=== PATIENT | female | born 1945 | race Caucasian/White ===

== ENCOUNTER 2021-12-13 12:37 | Emergency (ER) | payer MEDICARE, MEDICAID, SELFPAY ==
[2021-12-13 12:38] VITALS: BP 131/59; PULSE 75; RESP 15; TEMP 37.9; O2SAT 95
--- NOTE | 2021-12-13 12:52 | ECG_ITS ---
Measurements Intervals [place] Rate: 73 P: 40 OH: 196 QRS: 22 QRSD: 90 T: 29 QT: 393 QTc: 433 Interpretive Statements SINUS RHYTHM NORMAL ECG NO PREVIOUS ECG AVAILABLE FOR COMPARISON Electronically Signed On 12-13-2021 16:31:58 CDT by Dick Gomez M.D.
--- NOTE | 2021-12-13 12:52 | ED.SYNCOPE ---
HPI - Syncope General Chief Complaint: Syncope Stated Complaint: Syncope Time Seen by Provider: 12/13/21 12:46 History of Present Illness HPI narrative: Pt was walking outside with on regular walk and felt light headed and had brief syncopal episode. Pt did not notice CP or palpitations prior to or after event. was next to her and lowered her to ground. Pt says she feels fine now. Had an episode 20 years ago similar but none since. Heat index well over 100 today. Related Data Home Medications Medication Instructions Recorded Confirmed atenolol 25 mg tablet tablet 12/13/21 atorvastatin 10 mg tablet tablet 12/13/21 bacillus coagulans-inulin 1 cap PO 12/13/21 billion cell-250 mg capsule (Probiotic with Prebiotic) levothyroxine 100 mcg tablet tablet 12/13/21 lisinopril 10 mg tablet tablet 12/13/21 sodium bicarbonate 650 mg tablet tablet 12/13/21 12/13/21 Allergies Allergy/AdvReac Type Severity Reaction Status Date / Time codeine Allergy Abdominal Verified 12/13/21 12:53 Pain ibuprofen [From Motrin] Allergy Numbness Verified 12/13/21 12:53 Review of Systems Review of Systems: All systems reviewed & are unremarkable except as noted in HPI and below Exam Const: General: healthy appearing Nutritional Appearance: well nourished Orientation/consciousness: patient oriented x3 Limitations: no limitations HENMT: Head: normal to inspection Mouth: Yes Normal oral and palatal mucosa present Eyes: Conjunctivae: conjunctivae normal EOM: EOMs intact bilaterally Neck: Neck: normal visual inspection, no lymphadenopathy and no meningeal signs Chest: Chest palpation & inspection: normal inspection of the chest Resp: Effort & Inspection: normal respiratory effort Auscultation: clear to auscultation bilaterally Cardio: Rate: regular rate Rhythm: regular rhythm Heart sounds: Murmur heart sound present GI: Auscultation: normal bowel sounds Skin: General skin exam: normal color Rashes: no rashes Wounds: no wounds Neuro: General: patient oriented x3, moves all extremities, no meningeal signs, no focal motor deficits and CN's II-XI intact bilaterally Cranial nerves: Yes Nystagmus not present Speech: normal speech Extrem: General: normal to inspection and no clubbing, cyanosis or edema Psych: Mental Status: mental status grossly normal Affect: normal affect Attitude: cooperative Course Vital Signs Vital signs: Vital Signs Temperature 100.3 F H 12/13/21 12:38 Pulse Rate 75 12/13/21 12:38 Respiratory Rate 15 12/13/21 12:38 Blood Pressure 131/59 L 12/13/21 12:38 Pulse Oximetry 95 12/13/21 12:38 Oxygen Delivery Room Air 12/13/21 12:38 Temperature 97.9 F 12/13/21 13:55 Pulse Rate 68 12/13/21 14:43 Respiratory Rate 14 12/13/21 14:43 Blood Pressure 118/64 12/13/21 14:43 Pulse Oximetry 98 12/13/21 14:43 Oxygen Delivery Room Air 12/13/21 13:07 MDM - Syncope Lab Data Result diagrams: 12/13/21 13:06 12/13/21 13:06 Labs: Lab Results 12/13/21 12/13/21 Range/Units 13:06 13:06 WBC 8.0 (4.5-10.0) K/mm3 RBC 4.01 L (4.2-5.4) M/mm3 Hgb 11.1 L (12.0-15.0) g/dL Hct 34.7 L (37.0-47.0) % MCV 86.5 (80-100) fl MCH 27.7 (26-34) pg MCHC 32.0 (32-36) g/dl RDW 14.3 (11.5-14.5) % Plt Count 171 (150-375) k/mm3 MPV 10.1 (7.4-10.4) fl Immature Gran % (Auto) 0.4 (0-0.5) % Neut % (Auto) 63.7 (45.5-73.1) % Lymph % (Auto) 19.4 (18.3-44.2) % [place] % (Auto) 11.5 H (2.6-8.5) % Eos % (Auto) 4.1 (0-4.4) % Baso % (Auto) 0.9 (0.2-1.2) % Lymph # (Auto) 1.55 (0.9-3.2) K/mm3 [place] # (Auto) 0.9 H (0.1-0.6) K/mm3 Eos # (Auto) 0.3 (0-0.3) K/mm3 Baso # (Auto) 0.1 (0.0-0.1) K/mm3 Abs Immat Gran (auto) 0.03 (0.00-0.031) K/mm3 Absolute Neuts (auto) 5.1 (1.3-6.7) K/mm3 Absolute Nucleated RBC 0.0 (0.0-0.012) K/mm3 Nucleated RBC % 0.0 (0.0-0.2) %
[2021-12-13] MEDS: SODIUM CHLORIDE 0.9% IV 1,000 ML 999 ML IV CONT (12:59)
[2021-12-13 13:00] VITALS: BP 125/59; BP 140/65; PULSE 80; PULSE 88
[2021-12-13 13:02] VITALS: BP 128/68; PULSE 83
[2021-12-13 13:07] VITALS: O2SAT 96
[2021-12-13 13:11] LABS: Basophils Absolute Auto 0.1 K/mm3 (0.0-0.1); Basophils Percent Auto 0.9 % (0.2-1.2); Eosinophils Absolute Auto 0.3 K/mm3 (0-0.3); Eosinophils Percent Auto 4.1 % (0-4.4); Hematocrit 34.7 % (37.0-47.0); Hemoglobin 11.1 g/dL (12.0-15.0); Immature Granulocyte Absolute 0.03 K/mm3 (0.00-0.031); Immature Granulocyte Percent A 0.4 % (0-0.5); Lymphocytes Absolute Auto 1.55 K/mm3 (0.9-3.2); Lymphocytes Percent Auto 19.4 % (18.3-44.2); Mean Corpuscular Hemoglobin 27.7 pg (26-34); Mean Corpuscular Volume 86.5 fl (80-100); Mean Platelet Volume 10.1 fl (7.4-10.4); Monocytes Absolute Auto 0.9 K/mm3 (0.1-0.6); Monocytes Percent Auto 11.5 % (2.6-8.5); Neutrophils Absolute Auto 5.1 K/mm3 (1.3-6.7); Neutrophils Percent Auto 63.7 % (45.5-73.1); Platelet Count Result 171 k/mm3 (150-375); Red Blood Count 4.01 M/mm3 (4.2-5.4); Red Cell Distribution Width 14.3 % (11.5-14.5)
[2021-12-13 13:21] LABS: Alanine Aminotransferase 32 U/L (6-35); Alkaline Phosphatase 83 U/L (38-126); Anion Gap 7 mmol/L (8-16); Aspartate Amino Transferase 36 U/L (14-36); Bilirubin,Total 0.3 mg/dL (0.2-1.3); Blood Urea Nitrogen 32 mg/dL (7-17); Calcium 8.8 mg/dL (8.4-10.2); Carbon Dioxide 22 mmol/L (22-30); Chloride 109 mmol/L (98-107); Estimated CRCL calculation 13 ml/min; Estimated Glomerular Filt Rate 17; Glucose 116 mg/dL (65-110); Magnesium 1.6 mg/dL (1.6-2.3); Potassium 4.6 mmol/L (3.4-5.0); Sodium 138 mmol/L (137-145)
[2021-12-13 13:33] LABS: Troponin I < 0.012 ng/mL (0.000-0.034)
[2021-12-13 13:55] VITALS: BP 127/58; PULSE 70; RESP 14; TEMP 36.6; O2SAT 97
[2021-12-13 14:43] VITALS: BP 118/64; PULSE 68; RESP 14; O2SAT 98
== END 2021-12-13 14:45 | disposition home or self-care (01) ==
PROVIDERS: Emergency Provider Emergency Medicine; PCP Family Medicine
DX: R55 Syncope and collapse (principal)
CPT/HCPCS: 36415; 80053; 83735; 84484; 85025; 93005; 96360; 99284; J7030

== ENCOUNTER 2022-07-15 10:07 | Outpatient (CLI) | payer MEDICARE, MEDICAID, SELFPAY ==
[2022-07-15 21:41] LABS: Free T4 Free Thyroxine Reflex 0.94 ng/dL (0.78-2.19)
[2022-07-15 22:26] LABS: Total Triiodothyronine (T3) 0.77 NG/ML (0.97-1.69)
== END 2022-07-15 10:08 | disposition home or self-care (01) ==
PROVIDERS: PCP Family Medicine; Visit Provider Nurse Practitioner Family
DX: E03.9 Hypothyroidism, unspecified (principal)
CPT/HCPCS: 36415; 84439; 84443; 84480

== ENCOUNTER 2022-07-23 12:53 | Emergency (ER) | payer MEDICARE, MEDICAID, SELFPAY ==
[2022-07-23] VITALS (7 sets, daily range): BP systolic 119–145; BP diastolic 59–90; PULSE 77–89; RESP 15–24; TEMP 36.6–36.9; O2SAT 95–100
[2022-07-23 15:36] LABS: Influenza A QL RT-PCR Negative (Negative); Influenza B QL RT-PCR Negative (Negative); SARS-CoV-2 RNA PCR Negative
--- NOTE | 2022-07-23 16:58 | ED.GENADULT ---
HPI - General Adult General Chief complaint: Unspecified <Berto Blanc MD - Last Filed: 07/23/22 19:02> Stated complaint: not feeling good <Berto Blanc MD - Last Filed: 07/23/22 19:02> Time Seen by Provider: 07/23/22 16:53 <Berto Blanc MD - Last Filed: 07/23/22 19:02> History of Present Illness HPI narrative: Patient is a 76-year-old female who presents ER with fatigue some body aches. Is been ongoing for 3 days. No fevers or chills or sweats. No chest pain or chest pressure. She has tried Tylenol without improvement. She recently had a left AV fistula graft placed scheduled. Urinary frequency urgency or dysuria. She is making urine. She reports he is on the list for kidney transplant. She is not anticipating dialysis but her doctor's placement in case there should be an emergency issue requires dialysis. Patient has history of rheumatoid arthritis and reports that she has been having aching in her knees arms. <Berto Blanc MD - Last Filed: 07/23/22 19:02> Related Data Home medications: Home Medications Medication Instructions Recorded Confirmed atenolol 25 mg tablet tablet 12/13/21 atorvastatin 10 mg tablet tablet 12/13/21 bacillus coagulans-inulin 1 cap PO 12/13/21 billion cell-250 mg capsule (Probiotic with Prebiotic) levothyroxine 100 mcg tablet tablet 12/13/21 lisinopril 10 mg tablet tablet 12/13/21 sodium bicarbonate 650 mg tablet tablet 12/13/21 12/13/21 <Berto Blanc MD - Last Filed: 07/23/22 19:02> Allergies/adverse reactions: Allergies Allergy/AdvReac Type Severity Reaction Status Date / Time codeine Allergy Abdominal Verified 07/23/22 17:55 Pain ibuprofen [From Motrin] Allergy Numbness Verified 07/23/22 17:55 <Berto Blanc MD - Last Filed: 07/23/22 19:02> Review of Systems Review of Systems: All systems reviewed & are unremarkable except as noted in HPI and below <Berto Blanc MD - Last Filed: 07/23/22 19:02> Constitutional: Constitutional: Denies chills, Reports fatigue and Denies fever(s) <Berto Blanc MD - Last Filed: 07/23/22 19:02> ENT: Denies nasal congestion and Denies sore throat <Berto Blanc MD - Last Filed: 07/23/22 19:02> Cardiovascular: Cardiovascular: Denies chest pain, Denies radiating jaw, neck or arm pain and Denies palpitations <Berto Blanc MD - Last Filed: 07/23/22 19:02> Respiratory: Respiratory: Denies cough and Denies dyspnea <Berto Blanc MD - Last Filed: 07/23/22 19:02> Gastrointestinal: Gastrointestinal: Denies abdominal pain, Denies nausea and Denies vomiting <Berto Blanc MD - Last Filed: 07/23/22 19:02> Musculoskeletal: Musculoskeletal: Reports myalgias, Reports arthralgias and Denies joint swelling <Berto Blanc MD - Last Filed: 07/23/22 19:02> PMFSH Past Medical History Medical History: Medical History (Updated 07/23/22 @ 22:49 by Mateus Sierra MD) Chronic kidney disease Hyperlipidemia Hypertension Hypothyroidism <Berto Blanc MD - Last Filed: 07/23/22 19:02> Surgical History Surgical History: Surgical History (Updated 07/23/22 @ 17:54 by Berto Blanc MD) S/P arteriovenous (AV) fistula creation <Berto Blanc MD - Last Filed: 07/23/22 19:02> Exam Narrative: GENERAL: Well-appearing, well-nourished, and in no acute distress. HEAD: Normocephalic, atraumatic. EYES: PERRL and EOMI. ENT: Mucous membranes moist. CHEST: Clear to auscultation. No respiratory distress. HEART: Regular rate and rhythm. Normal peripheral pulses. ABDOMEN: Soft, nontender, nondistended. EXTREMITIES: Normal range of motion. No edema. No redness or swelling of the hands/elbows/knees. AV fistula in left upper extremity with excellent thrill, no redness or tenderness. SKIN: Warm, dry, no rash. NEURO: Alert and oriented x3. PSYCH: Normal mood and affect. <Berto Blanc MD - Last Filed:
[2022-07-23] MEDS: MORPHINE SULFATE (*CRX) 4 MG/ML INJ IV PUSH (17:48)
[2022-07-23] MEDS: SODIUM CHLORIDE 0.9% IV 1,000 ML 999 ML IV CONT (17:48)
[2022-07-23 17:51] LABS: Basophils Absolute Auto 0.1 K/mm3 (0.0-0.1); Basophils Percent Auto 0.4 % (0.2-1.2); Eosinophils Absolute Auto 0.1 K/mm3 (0-0.3); Eosinophils Percent Auto 0.3 % (0-4.4); Hematocrit 39.2 % (37.0-47.0); Hemoglobin 13.1 g/dL (12.0-15.0); Immature Granulocyte Absolute 0.09 K/mm3 (0.00-0.031); Immature Granulocyte Percent A 0.5 % (0-0.5); Lymphocytes Absolute Auto 1.86 K/mm3 (0.9-3.2); Lymphocytes Percent Auto 10.2 % (18.3-44.2); Mean Corpuscular HGB Conc 33.4 g/dl (32-36); Mean Corpuscular Hemoglobin 28.3 pg (26-34); Mean Corpuscular Volume 84.7 fl (80-100); Mean Platelet Volume 11.6 fl (7.4-10.4); Monocytes Absolute Auto 2.5 K/mm3 (0.1-0.6); Monocytes Percent Auto 13.6 % (2.6-8.5); Neutrophils Absolute Auto 13.7 K/mm3 (1.3-6.7); Platelet Count Result 145 k/mm3 (150-375); Red Blood Count 4.63 M/mm3 (4.2-5.4); Red Cell Distribution Width 15.5 % (11.5-14.5); White Blood Count 18.3 K/mm3 (4.5-10.0)
[2022-07-23 18:02] LABS: Alanine Aminotransferase 19 U/L (6-35); Albumin Level 4.2 g/dL (3.5-5.1); Alkaline Phosphatase 68 U/L (38-126); Anion Gap 14 mmol/L (8-16); Aspartate Amino Transferase 26 U/L (14-36); Bilirubin,Total 0.7 mg/dL (0.2-1.3); Blood Urea Nitrogen 43 mg/dL (7-17); Calcium 9.3 mg/dL (8.4-10.2); Carbon Dioxide 15 mmol/L (22-30); Chloride 100 mmol/L (98-107); Creatine Kinase 75 U/L (30-135); Estimated Glomerular Filt Rate 14; Glucose 100 mg/dL (65-110); Lipase 114 U/L (23-300); Potassium 4.8 mmol/L (3.4-5.0); Sodium 129 mmol/L (137-145)
--- NOTE | 2022-07-23 19:28 | PC.NURSE ---
assumed care of pt. at this time. Report from SHANIKA rick
[2022-07-23 20:10] LABS: Free T4 Free Thyroxine Reflex 0.99 ng/dL (0.78-2.19)
[2022-07-23 20:22] LABS: Appearance Urine Clear (Clear); Bilirubin Urine Negative (Negative); Blood Urine 1+ (Negative); Color Urine Yellow (Yellow); Glucose Urine UA Negative (Negative); Ketones Urine Negative (Negative); Leukocyte Esterase Ur Negative LEU/UL (Negative); Nitrate Urine Negative (Negative); Protein Urine 1+ mg/dL (Negative); Urobilinogen Urine 0.2 mg/dL (<2.0); pH Urine 5.5 (5.0-9.0)
[2022-07-23 20:25] LABS: Mucus Urine Rare /lpf; RBC Urine 0-2 /hpf (0-2); Squamous Epithelial Cell Urine Rare /hpf (Few); WBC Urine 0-3 /hpf
[2022-07-23 20:29] LABS: Add Urine Microscopic? YES
[2022-07-23 21:28] LABS: Lactic Acid Reflex 1.3 mmol/L (0.7-2.0)
[2022-07-23 21:53] LABS: Procalcitonin 1.4 ng/mL
[2022-07-23 22:10] LABS: Total Triiodothyronine (T3) 0.38 NG/ML (0.97-1.69)
[2022-07-23] MEDS: HYDROmorphone HCL INJ (*CRX) 1 MG/ML SYR IV PUSH (22:24)
[2022-07-24] VITALS: BP 120/80; PULSE 80; RESP 19; O2SAT 94
== END 2022-07-24 | disposition home or self-care (01) ==
PROVIDERS: Emergency Medicine; Physician Assistant; Emergency Provider Emergency Medicine; PCP Family Medicine
DX: M79.10 Myalgia, unspecified site (principal); D72.829 Elevated white blood cell count, unspecified; Z20.822 Contact with and (suspected) exposure to COVID-19; I12.9 Hypertensive chronic kidney disease with stage 1 through stage 4 chronic kidney disease, or unspecified chronic kidney disease; N18.9 Chronic kidney disease, unspecified; E78.5 Hyperlipidemia, unspecified; E03.9 Hypothyroidism, unspecified; M06.9 Rheumatoid arthritis, unspecified
CPT/HCPCS: 36415; 80053; 81001; 82550; 83605; 83690; 84145; 84439; 84443; 84480; 85025; 87040; 87636; 96361; 96374; 96375; 99284; J1170; J2270; J7030

== ENCOUNTER 2022-10-18 11:28 | Outpatient (CLI) | payer MEDICARE, MEDICAID, SELFPAY ==
--- NOTE | ~2022-10-18 | MM_ITS ---
EXAMINATION: MM screening stacy BI w akbar HISTORY: Screening mammogram TECHNIQUE: Craniocaudal and mediolateral oblique 3-D tomosynthesis images were obtained and synthetic 2-D images were generated. CAD analysis was submitted and interpreted. COMPARISON: No prior mammogram is available for comparison at this institution. BREAST PARENCHYMAL COMPOSITION: There are scattered areas of fibroglandular density. FINDINGS: RIGHT BREAST: No suspicious mass, calcification, or architectural distortion are identified to sugges t malignancy. LEFT BREAST: There is a mass in the posterior third of the central, slightly outer breast. No suspici ous calcification is identified. IMPRESSION: 1. Left breast mass. 2. Additional mammographic views and left breast ultrasound are recommended. BI-RADS Category 0: Incomplete: Needs additional imaging evaluation. Reviewed, dictated and finalized at location A.
== END 2022-10-18 11:29 | disposition home or self-care (01) ==
LOC: CHSIMG 11:32
PROVIDERS: PCP Nurse Practitioner Family; Visit Provider Nurse Practitioner Family
DX: Z12.31 Encounter for screening mammogram for malignant neoplasm of breast (principal); R92.8 Other abnormal and inconclusive findings on diagnostic imaging of breast
CPT/HCPCS: 77063; 77067

== ENCOUNTER 2022-10-28 08:36 | Outpatient (CLI) | payer MEDICARE, MEDICAID, SELFPAY ==
--- NOTE | ~2022-10-28 | MMUS_ITS ---
EXAMINATION: MM diagnostic stacy LT w akbar, US breast LT limited HISTORY: Left breast mass reported on October 18, 2022 screening mammogram TECHNIQUE: Additional 3-D tomosynthesis images of were performed and synthetic 2-D images were genera ara. CAD analysis was submitted and interpreted. High resolution breast ultrasound was performed. COMPARISON: October 18, 2021 bilateral screening mammogram FINDINGS: MAMMOGRAPHIC FINDINGS: An incompletely circumscribed mildly irregular approximately 11 mm mass is present in the inner aspec t of the posterior outer mid left breast at approximately 4:00 position. The mammographic features ar e suspicious for malignancy. ULTRASOUND: 4:00 5 cm from nipple: Antiparallel hypoechoic approximately 5 x 9 10 mm mass is present, with inter nal vascularity. Findings are highly suggestive of malignancy IMPRESSION: 1. Approximately 10 mm irregular hypoechoic mass with internal vascularity at 4:00 5 cm from nipple, highly suggestive of malignancy 2. Ultrasound-guided biopsy is recommended BI-RADS category 5, highly suggestive of malignancy. Dr. Huggins telephoned the report and ultrasound-guided biopsy recommendation of left breast 4:00 lesion on October 28, [address] Carrillo Reviewed, dictated and finalized at location A. IMPRESSION: 1. Approximately 10 mm irregular hypoechoic mass with internal vascularity at 4 :00 5 cm from nipple, highly suggestive of malignancy 2. Ultrasound-guided biopsy is recommended BI-RADS category 5, highly suggestive of malignancy. Dr. Huggins telephoned the report and ultrasound-guided biopsy recommendation of l eft breast 4:00 lesion on October 28, [address] Carrillo
== END 2022-10-28 08:37 | disposition home or self-care (01) ==
LOC: CHSIMG 08:38
PROVIDERS: PCP Nurse Practitioner Family; Visit Provider Nurse Practitioner Family
DX: R92.8 Other abnormal and inconclusive findings on diagnostic imaging of breast (principal)
CPT/HCPCS: 76642; 77061; 77065; G0279

== ENCOUNTER 2022-11-11 08:32 | Outpatient (CLI) | payer MEDICARE, MEDICAID, SELFPAY ==
[2022-11-11 09:03] LABS: Alanine Aminotransferase 39 U/L (6-35); Albumin Level 4.4 g/dL (3.5-5.1); Alkaline Phosphatase 62 U/L (38-126); Anion Gap 11 mmol/L (8-16); Aspartate Amino Transferase 49 U/L (14-36); Bilirubin,Total 0.4 mg/dL (0.2-1.3); Blood Urea Nitrogen 37 mg/dL (7-17); Calcium 9.8 mg/dL (8.4-10.2); Carbon Dioxide 22 mmol/L (22-30); Chloride 102 mmol/L (98-107); Estimated Glomerular Filt Rate 15; Glucose 91 mg/dL (65-110); Potassium 4.1 mmol/L (3.4-5.0); Sodium 135 mmol/L (137-145)
== END 2022-11-11 08:33 | disposition home or self-care (01) ==
PROVIDERS: PCP Nurse Practitioner Family; Visit Provider Anesthesiology
DX: N18.4 Chronic kidney disease, stage 4 (severe) (principal)
CPT/HCPCS: 36415; 80053

== ENCOUNTER 2022-11-15 01:24 | Day surgery (SDC) | payer MEDICARE, MEDICAID, SELFPAY ==
[2022-11-03 14:36] VITALS: BMI 23.4
[2022-11-15 08:08] VITALS: BP 142/62; PULSE 52; RESP 16; TEMP 36; O2SAT 95; BMI 23.4
--- NOTE | 2022-11-15 08:15 | WPDANESEPPF ---
Anes - Initial Pre Proc Eval Procedure: Operation Date: 11/15/22 09:30 Proposed Procedures p Screening Colonoscopy - Inocente Issa MD Date/Time: 11/15/22 08:15 Surgeon: Inocente Issa MD Pre Op Diagnosis: neoplasm screening Patient Data Age: 76 Gender: F Height: 1.6 m Weight: 60.1 kg Last Vital Signs Temp 36.0 C L 11/15/22 08:08 Pulse 52 L 11/15/22 08:08 Resp 16 11/15/22 08:08 BP 142/62 H 11/15/22 08:08 Pulse Ox 95 11/15/22 08:08 O2 Del Method Room Air 11/15/22 08:08 Allergies Allergy/AdvReac Type Severity Reaction Status Date / Time codeine Allergy Abdominal Verified 11/15/22 08:06 Pain ibuprofen [From Motrin] Allergy Numbness Verified 11/15/22 08:06 Home Medications Medication Instructions Recorded Confirmed Type atorvastatin 10 mg tablet (Lipitor) 1 tablet PO DAILY 12/13/21 11/15/22 History levothyroxine 100 mcg tablet 1 tablet PO DAILY 12/13/21 11/15/22 History lisinopril 10 mg tablet 1 tablet PO DAILY 12/13/21 11/15/22 History sodium bicarbonate 650 mg tablet 1 tablet PO DAILY 12/13/21 11/15/22 History calcitriol 0.5 mcg capsule 0.5 mcg PO DAILY 11/03/22 11/15/22 History patiromer calcium sorbitex 8.4 8.4 g PO DAILY 11/03/22 11/15/22 History gram oral powder packet (Veltassa) Patient hx anesthesia problems: none Family hx anesthesia problems: none Results Review: All pre-operative results and documents have been reviewed as part of the pre-operative evaluation. FORMERLY [facility], [facility] Past Medical History Medical History (Updated 11/15/22 @ 08:17 by Puma Trivedi MD) Aortic stenosis Chronic kidney disease Hyperlipidemia Hypertension Hypothyroidism Surgical History Surgical History (Updated 07/23/22 @ 17:54 by Berto Blanc MD) S/P arteriovenous (AV) fistula creation Social History Social History Smoking packs per day: 0.5 Smoking cigarettes per day: 10.0 Years smoked: 40 Smoking pack-years: 20.00 Smoking status: Former smoker Tobacco type: cigarettes Additional smoking assessment comments: quit 9 years ago Alcohol intake: never Substance use: never Substance use type: does not use Living arrangements: with family Spiritual care concerns: No Anes - Eval Final PreProcedure Day of Procedure 11/15/22 08:15 Patient weight: normal Heart: regular rate and rhythm Lungs: clear to auscultation and normal air movement Airway: Mallampati scale class II Neurological: alert and oriented Last oral intake: >/= 8 hours ASA classification: IV Emergent: no Anesthetic plan: proceed Anesthesia type and monitoring: general GIVS Results Review: All pre-operative results and documents have been reviewed as part of the pre-operative evaluation. Informed Consent: The patient's anesthetic plan and its attendant risks and benefits were discussed with the patient/family/POA. Questions were solicited and answers provided to the satisfaction of the patient/family/POA.
[2022-11-15] MEDS: LACTATED RINGERS 1,000 ML 150 ML IV CONT (08:16)
[2022-11-15] MEDS: SODIUM CHLORIDE 0.9% IV 500 ML 10 ML IV CONT (08:26)
--- NOTE | 2022-11-15 08:54 | PM.HPGS ---
History of Present Illness History of Present Illness Consent: Risks, benefits, and alternatives have been discussed and questions answered. Patient agrees to proceed with procedure. Chief complaint: neoplasm screening Narrative: Gregoria Murray is a 76 year old female Presents for colonoscopy. Patient reports a family history of colon cancer in both grandfather and her mother. Patient has previously had colon polyps. Previous colonoscopies all performed in [place]. Patient reports that her current weight appetite and bowel movements are normal. She denies abdominal pain. She has had no bleeding. Review of Systems Review of Systems: Review of systems noncontributory. [facility] Past Medical History Medical History (Updated 11/15/22 @ 08:56 by Inocente Issa MD) Aortic stenosis Chronic kidney disease Hyperlipidemia Hypertension Hypothyroidism Surgical History Surgical History (Updated 07/23/22 @ 17:54 by Berto Blanc MD) S/P arteriovenous (AV) fistula creation Social History Social History Smoking packs per day: 0.5 Smoking cigarettes per day: 10.0 Years smoked: 40 Smoking pack-years: 20.00 Smoking status: Former smoker Tobacco type: cigarettes Additional smoking assessment comments: quit 9 years ago Alcohol intake: never Substance use: never Substance use type: does not use Living arrangements: with family Spiritual care concerns: No Meds Home Medications and Allergies Home Medications Medication Instructions Recorded Confirmed Type atorvastatin 10 mg tablet (Lipitor) 1 tablet PO DAILY 12/13/21 11/15/22 History levothyroxine 100 mcg tablet 1 tablet PO DAILY 12/13/21 11/15/22 History lisinopril 10 mg tablet 1 tablet PO DAILY 12/13/21 11/15/22 History sodium bicarbonate 650 mg tablet 1 tablet PO DAILY 12/13/21 11/15/22 History calcitriol 0.5 mcg capsule 0.5 mcg PO DAILY 11/03/22 11/15/22 History patiromer calcium sorbitex 8.4 8.4 g PO DAILY 11/03/22 11/15/22 History gram oral powder packet (Veltassa) Allergies Allergy/AdvReac Type Severity Reaction Status Date / Time codeine Allergy Abdominal Verified 11/15/22 08:06 Pain ibuprofen [From Motrin] Allergy Numbness Verified 11/15/22 08:06 Vital Signs Vital Signs - 24 hr 11/15/22 08:08 Temperature 96.8 F L Pulse Rate 52 L Respiratory Rate 16 Blood Pressure 142/62 H Pulse Oximetry 95 Oxygen Delivery Room Air Exam Narrative: Physical exam reveals patient be alert. Vital signs stable. HEENT exam is unremarkable. Patient is anicteric. Lungs are clear to auscultation and percussion. Heart is without murmur or extra sounds. Abdomen bowel sounds are present soft nontender with no organomegaly. Digital external rectal exam is normal. Assessment and Plan Assessment and plan (1) History of colon polyps: Code(s): Z86.010 - Personal history of colonic polyps Status: Acute Assessment and Plan: Patient has previously had colon polyps in several previous colonoscopy. Plan for surveillance colonoscopy now and consider this at 5 year intervals in the future. (2) Family history of colon cancer in mother: Code(s): Z80.0 - Family history of malignant neoplasm of digestive organs Status: Acute Assessment and Plan: Patient's mother and grandfather both have had colon cancer. She herself has had colon polyps. Plan follow-up colonoscopy at 5 year intervals.
[2022-11-15 09:51] VITALS: BP 94/45; PULSE 67; RESP 22; O2SAT 98
[2022-11-15 10:01] VITALS: BP 102/43; PULSE 67; RESP 22; O2SAT 99
[2022-11-15 10:11] VITALS: BP 109/46; PULSE 55; RESP 16; O2SAT 99
== END 2022-11-15 10:18 | disposition home or self-care (01) ==
PROVIDERS: PCP Nurse Practitioner Family; Visit Provider Internal Medicine Gastroenterology
PROC: 0DJD8ZZ Inspection of Lower Intestinal Tract, Via Natural or Artificial Opening Endoscopic (ICD-10-PCS; CPT 45378; principal; 2022-11-15 09:30)
DX: Z12.11 Encounter for screening for malignant neoplasm of colon (principal); D12.8 Benign neoplasm of rectum; K64.8 Other hemorrhoids; Z80.0 Family history of malignant neoplasm of digestive organs; I12.9 Hypertensive chronic kidney disease with stage 1 through stage 4 chronic kidney disease, or unspecified chronic kidney disease; N18.9 Chronic kidney disease, unspecified; E78.5 Hyperlipidemia, unspecified; E03.9 Hypothyroidism, unspecified; Z87.891 Personal history of nicotine dependence
CPT/HCPCS: 45385; 88305; J2704; J7040; J7120

== ENCOUNTER 2022-11-17 10:10 | Outpatient (CLI) | payer MEDICARE, MEDICAID, SELFPAY ==
--- NOTE | ~2022-11-17 | MMUS_ITS ---
EXAMINATION: US breast biopsy LT w image, MM post biopsy invasive LT DATE: 11/17/2022 11:58 (accession [id number]), 11/17/2022 11:18 (accession [id number]) INDICATION: Mass in the lower outer quadrant left breast. Ultrasound-guided core biopsy is requested to evaluate for malignancy. TECHNIQUE AND FINDINGS: The risks and potential benefits of the procedure were discussed with the patient including bleeding and infection. A time out was performed. The skin of the left breast was prepared and draped in usual sterile fashion. 1% lidocaine was used for superficial anesthesia. 1% lidocaine with epinephrine was used for deep anesthesia. A vacuum-assisted biopsy needle was advanced through to the outer edge of the region of interest from a superolateral approach utilizing sonographic guidance. A total of four tissue core samples were ob tained through the lesion. A tissue marker clip was then placed at the biopsy site. Hemostasis was ac hieved. A sterile bandage was applied. A two view left breast mammogram was obtained to document tiss ue marker clip placement. The ribbon marker seen is anterior to the mammographically detected mass. T he possibility of marker migration was discussed and we decided to take additional samples to be assu red the biopsies were obtained in the correct position. Six additional samples were obtained and a he art shaped marker was deployed. Two-view mammogram was repeated and this second marker was not visibl e on the obtained mammographic images, although deployment was visually confirmed by ultrasound. The patient tolerated procedure well and there was no evidence of immediate complication. The patient was given verbal instructions to return to the Emergency Department in the event of severe breast pa in or rapid breast enlargement. IMPRESSION: 1. Successful ultrasound-guided vacuum-assisted biopsy of left breast mass with tissue marker placeme nt. Reviewed, dictated and finalized at location A. IMPRESSION: 1. Successful ultrasound-guided vacuum-assisted biopsy of left breast mass with tissue marker placement.
== END 2022-11-17 10:11 | disposition home or self-care (01) ==
PROVIDERS: PCP Nurse Practitioner Family; Visit Provider Family Medicine
DX: R92.8 Other abnormal and inconclusive findings on diagnostic imaging of breast (principal)
CPT/HCPCS: 19083; 88305; 88360; A4648

== ENCOUNTER 2022-12-26 08:28 | Outpatient (CLI) | payer MEDICARE, MEDICAID, SELFPAY ==
[2022-12-26 08:48] LABS: Basophils Absolute Auto 0.1 K/mm3 (0.0-0.1); Basophils Percent Auto 0.7 % (0.2-1.2); Eosinophils Absolute Auto 0.5 K/mm3 (0-0.3); Eosinophils Percent Auto 4.9 % (0-4.4); Hematocrit 36.3 % (37.0-47.0); Hemoglobin 11.8 g/dL (12.0-15.0); Immature Granulocyte Absolute 0.02 K/mm3 (0.00-0.031); Immature Granulocyte Percent A 0.2 % (0-0.5); Lymphocytes Absolute Auto 2.05 K/mm3 (0.9-3.2); Lymphocytes Percent Auto 19.9 % (18.3-44.2); Mean Corpuscular HGB Conc 32.5 g/dl (32-36); Mean Corpuscular Hemoglobin 29.3 pg (26-34); Mean Corpuscular Volume 90.1 fl (80-100); Mean Platelet Volume 11.6 fl (7.4-10.4); Monocytes Absolute Auto 1.2 K/mm3 (0.1-0.6); Monocytes Percent Auto 11.3 % (2.6-8.5); Neutrophils Absolute Auto 6.5 K/mm3 (1.3-6.7); Platelet Count Result 150 k/mm3 (150-375); Red Blood Count 4.03 M/mm3 (4.2-5.4); Red Cell Distribution Width 15.3 % (11.5-14.5); White Blood Count 10.3 K/mm3 (4.5-10.0)
== END 2022-12-26 08:29 | disposition home or self-care (01) ==
LOC: ANHLAB 08:30
PROVIDERS: PCP Nurse Practitioner Family; Visit Provider Internal Medicine Hematology & Oncology
DX: C50.512 Malignant neoplasm of lower-outer quadrant of left female breast (principal); Z17.0 Estrogen receptor positive status [ER+]
CPT/HCPCS: 36415; 85025

== ENCOUNTER 2023-01-02 10:34 | Outpatient (CLI) | payer MEDICARE, MEDICAID, SELFPAY ==
[2023-01-02 11:16] LABS: INR 1.1; Prothrombin Time 14.4 Seconds (11.1-14.7)
[2023-01-02 11:17] LABS: Partial Thromboplastin Time 37.7 SECONDS (22.3-36.8)
== END 2023-01-02 10:35 | disposition home or self-care (01) ==
PROVIDERS: Anesthesiology; PCP Nurse Practitioner Family; Visit Provider Surgery
DX: N18.9 Chronic kidney disease, unspecified (principal); Z01.818 Encounter for other preprocedural examination
CPT/HCPCS: 36415; 85610; 85730

== ENCOUNTER 2023-01-02 12:15 | Outpatient (CLI) | payer MEDICARE, MEDICAID, SELFPAY ==
--- NOTE | ~2023-01-02 | MMUS_ITS ---
EXAMINATION: US_MAGSEEDLT_US, MM post biopsy invasive LT INDICATION: Left breast cancer TECHNIQUE: The procedure for a ultrasound -guided Magseed localization was discussed with the patient . Risks discussed included bleeding and infection. The patient verbalized understanding and agreed to proceed. The time out was performed to verify the patient's name, date of , and site of procedure. The s kin overlying the left breast was prepared in usual fashion. Utilizing ultrasound guidance, the needl e was advanced into the left breast mass. Confirmation of Magseed position was achieved with ultrasou nd and subsequent mediolateral and craniocaudal mammogram. The patient tolerated the procedure withou t immediate complication. FINDINGS: Ultrasound and mammographic images demonstrate deployment of the Magseed device at the site of the biopsy-proven left breast cancer. As seen on the prior postbiopsy mammogram, the magseed is p osterior to the ribbon marker but a position corresponding to the mammographic and sonographic mass. IMPRESSION: 1. Successful ultrasound-guided left breast Magseed localization. Reviewed, dictated and finalized at location A. IMPRESSION: 1. Successful ultrasound-guided left breast Magseed localization.
== END 2023-01-02 12:16 | disposition home or self-care (01) ==
PROVIDERS: PCP Nurse Practitioner Family; Visit Provider Surgery
DX: C50.912 Malignant neoplasm of unspecified site of left female breast (principal)
CPT/HCPCS: 19285; A4648

== ENCOUNTER 2023-01-05 02:17 | Day surgery (SDC) | payer MEDICARE, MEDICAID, SELFPAY ==
[2022-12-27 12:17] VITALS: BMI 25.0
--- NOTE | 2022-12-27 12:50 | PC.NURSE ---
Addendum entered by Flaca Maza RN 12/27/22 13:02: INSTRUCTED PATIENT TO HIBICLECANDI SHOWER ON MORNING OF SURGERY, SHE RELAYS UNDERSTANDING. Original Note: Report to the Outpatient Waiting Room, entrance under the green pavilion located off [facility], at time __10:00AM on date __01/05/23 . Planned Procedure Time: _12:00PM . Time changes happen often and if your time is changed the preop area will call you the afternoon before. - You and your visitor will be asked to self-screen and do not enter if you have any COVID symptoms. - A mask is optional within the hospital at this time. Patients may have clear liquids (water, carbonated beverages, clear teas, apple juice) until 3 hours prior to surgery with a maximum of 20 ounces. - No food from midnight until time of surgery Take the following medications with a SIP of water the morning of surgery: ___LEVOTHYROXINE DO NOT STOP ANY OF YOUR OTHER PRESCRIPTION MEDICATIONS PRIOR TO SURGERY ?EXCEPT THE FOLLOWING Medications to discontinue per physician ___NONE Date to take last dose Please no make-up, nail swedish, hairspray, perfume, deodorant, or body powder the day of surgery. No jewelry (including any body piercings) or valuables the day of surgery, leave them at home. Please take a shower or bath the night before, or the morning of, surgery with an antibacterial soap. Wear comfortable, loose fitting clothing. Children are encouraged to wear pajamas. - Jewelry must be removed prior to entering the operating room. Rings and piercings that are not removed may be cut off. - The hospital will not accept responsibility for valuables. - Please leave all valuables, including medications, at home the day of surgery. If you are going home after surgery, a licensed putaway driver must drive you home. - NO public transportation without another adult if you receive anesthesia. - We recommend that an adult stay with you for 24 hours following discharge. - We also recommend that you do not drive, make important decision, drink alcoholic beverages, or take any drugs that were not prescribed by your health care provider for at least 24 hours after your discharge time. Follow any additional instructions given to you from your surgeon. If you or anyone in your household have experienced Covid symptoms in the past week, please notify your surgeon or the nurse liaison at the phone number below for possible testing. Telephone instructions given to _PATIENT and asked if any additional questions and then verbalized understanding. Patient advised to call surgeon office or pre surgery nurse liaison [phone] if any additional questions.
[2023-01-05] VITALS (10 sets, daily range): BP systolic 115–168; BP diastolic 40–80; PULSE 45–99; RESP 12–16; TEMP 36–36.4; O2SAT 95–100
--- NOTE | ~2023-01-05 | MM_ITS ---
MM_FAXITRON_MG 01/16/2023 13:48 Indication: Breast cancer. Post biopsy breast specimen. Procedure: Single examination of post biopsy specimen Comparison: 01/02/2023 Findings: Contained in the postbiopsy specimen are 2 tissue markers in a mag seed. Impression: 1: Post biopsy specimen contains the mag seed and 2 tissue markers. Reviewed, dictated and finalized at location A. Impression: 1: Post biopsy specimen contains the mag seed and 2 tissue markers.
[2023-01-05] MEDS: ACETAMINOPHEN 500 MG TABLET 1000 MG PO (10:35)
[2023-01-05] MEDS: SODIUM CHLORIDE 0.9% IV 500 ML 30 ML IV CONT (10:55)
--- NOTE | 2023-01-05 11:11 | WPDHPUPDATE1 ---
History and Physical Update Update Date/Time: 01/05/23 11:11 History and Physical has been reviewed, including an updated exam of the patient. There are NO changes in the patient's condition. Risks, benefits, and alternatives have been discussed and questions answered. Patient agrees to proceed with procedure.
[2023-01-05 11:14] LABS: Partial Thromboplastin Time 39.9 SECONDS (22.3-36.8)
--- NOTE | 2023-01-05 11:46 | WPDANESEPPF ---
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 Patient Data Age: 77 Gender: F Height: 1.6 m Weight: 59.35 kg Last Vital Signs Temp 96.8 F L 01/05/23 10:59 Pulse 45 L 01/05/23 10:59 Resp 16 01/05/23 10:59 BP 168/40 H 01/05/23 10:59 Pulse Ox 100 01/05/23 10:59 O2 Del Method Room Air 01/05/23 10:59 Allergies Allergy/AdvReac Type Severity Reaction Status Date / Time codeine Allergy Severe Swelling Verified 01/05/23 10:43 of Lip/Tongue/Throat ibuprofen [From Motrin] AdvReac Intermediate Hives Verified 01/05/23 10:43 Home Medications Medication Instructions Recorded Confirmed Type atorvastatin 10 mg tablet (Lipitor) 1 tablet PO DAILY 12/13/21 01/05/23 History levothyroxine 100 mcg tablet 1 tablet PO QAM 12/13/21 01/05/23 History lisinopril 10 mg tablet 1 tablet PO QAM 12/13/21 01/05/23 History sodium bicarbonate 650 mg tablet 1 tablet PO DAILY 12/13/21 01/05/23 History calcitriol 0.5 mcg capsule 0.5 mcg PO DAILY 11/03/22 01/05/23 History patiromer calcium sorbitex 8.4 8.4 g PO DAILY 11/03/22 01/05/23 History gram oral powder packet (Veltassa) Laboratory Tests 01/05/23 10:26 APTT 39.9 H SECONDS (22.3-36.8) Patient hx anesthesia problems: none Family hx anesthesia problems: none Results Review: All pre-operative results and documents have been reviewed as part of the pre-operative evaluation. [facility] Past Medical History Medical History Aortic stenosis Chronic kidney disease Hyperlipidemia Hypertension Hypothyroidism Surgical History Surgical History S/P arteriovenous (AV) fistula creation Social History Social History Smoking packs per day: 0.5 Smoking cigarettes per day: 10.0 Years smoked: 47 Smoking pack-years: 23.50 Smoking status: Former smoker Tobacco type: cigarettes Smoking end date: 12/31/13 Additional smoking assessment comments: quit 9 years ago Alcohol intake: never Substance use: never Substance use type: does not use Lack of Transportation: No Lack of Food: Never True Current Housing: I Have Housing Concerned About Future Housing: Decline to Answer Difficulty Paying Gas/Electric Bills: No Difficulty Paying for Meds: No Currently Unemployed: No Education: High School Diploma/GED Difficulty w/ Childcare or Family Care: No Living arrangements: with family Additional living arrangements comments: DAUGHTER Spiritual care concerns: No Anes - Eval Final PreProcedure Day of Procedure 01/05/23 11:46 Patient weight: normal Heart: regular rate and rhythm Lungs: clear to auscultation Airway: Mallampati scale class II Neurological: alert and oriented Last oral intake: >/= 8 hours ASA classification: III Emergent: no Anesthetic plan: proceed Anesthesia type and monitoring: general GIVS and standard monitoring Results Review: All pre-operative results and documents have been reviewed as part of the pre-operative evaluation. Informed Consent: The patient's anesthetic plan and its attendant risks and benefits were discussed with the patient/family/POA. Questions were solicited and answers provided to the satisfaction of the patient/family/POA.
[2023-01-05] MEDS: ceFAZolin 2 GM/D5W 50 ML 2 GM/50 ML BAG IVPB (11:55)
--- NOTE | 2023-01-05 12:48 | SUR.OPER ---
LEFT BREAST LUMPECTOMY EXCISED AT 12:39. ADDITIONAL INFERIOR MARGIN EXCISED AT 12:49. FAXITRON X-RAY USED IN ROOM. DR. GUZMAN CONFIRMED MARGINS IN OPERATING ROOM. SPECIMENS SENT FRESH TO PATHOLOGY PER SHANIAK ALEGRE AT 12:52. RECEIVED BY ARIEL IN THE LAB AT 12:56. IMAGES SENT.
--- NOTE | 2023-01-05 13:36 | W.PM.PROC2 ---
Procedure Note - Detailed Date of Procedure 01/05/23 Pre-op Diagnosis invasive carcinoma of left breast Post-op Diagnosis Same Procedure Performed Left lumpectomy with magseed localization Surgeon Anna Mon MD Anesthesia General Description of Procedure Patient was identified in the pre-operative area and brought to the OR suite. She underwent tumor localization previously by IR with magseed placement. She was laid supine in the operating table and sequential compression devices were applied. General anesthesia was induced without difficulties. The left chest area was prepped and draped in a sterile fashion. The magnetic probe was used to identify the area where the magseed was placed and a inframammary incision was made as the tumor was located at approximately 4 o'clock position. Dissection was carried down through the subcutaneous tissue into the breast tissue. The tumor was identified with palpation and using the probe for confirmation of margins around the magseed, and a rim of normal breast tissue was excised along with the tumor as our lumpectomy specimen. Once the specimen was completely excised, it was oriented using surgical paint according to risk reduction counselor instructions. The faxitron was then used for confirmation of Tumor, biopsy marker and magseed within the specimen. Once the radiographic confirmation was received, the wound was irrigated with saline and hemostasis was assured. The deep dermal layer was approximated using interrupected 3-0 vicryl followed by 4-0 monocryl for the skin. Dermabond was applied followed by a surgical bra. Patient was awoken from anesthesia and taken to the recovery area in stable condition. All needles, instruments and sponge counts were correct as reported by the operating room staff. Patient tolerated the procedure well with no immediate complications. Estimated Blood Loss 5 Drains No Packing No Pathology Yes Complications No immediate complications Condition Stable Disposition PACU [facility] Billing Surgery - Charge Forward: Surgery Billing
== END 2023-01-05 15:16 | disposition home or self-care (01) ==
PROVIDERS: PCP Nurse Practitioner Family; Visit Provider Surgery
PROC: (CPT 19301; principal; 2023-01-05 12:00)
DX: C50.512 Malignant neoplasm of lower-outer quadrant of left female breast (principal); Z17.0 Estrogen receptor positive status [ER+]; I12.9 Hypertensive chronic kidney disease with stage 1 through stage 4 chronic kidney disease, or unspecified chronic kidney disease; N18.9 Chronic kidney disease, unspecified; E78.5 Hyperlipidemia, unspecified; E03.9 Hypothyroidism, unspecified; Z87.891 Personal history of nicotine dependence
CPT/HCPCS: 19301; 19285; 36415; 76098; 85610; 85730; 88307; A4648; A9270; J0690; J1100; J2405; J2704; J3010; J7040